=== PATIENT | female | born 1965 | race Caucasian/White ===

== ENCOUNTER → 2019-07-28 18:29 | Outpatient (CLI) | payer OTHER | END | disposition home or self-care (01) | LOC: D.MAMMO 07-12 15:30 | PROVIDERS: ATTEND Family Medicine | DX: Z12.31 Encounter for screening mammogram for malignant neoplasm of breast (principal) ==

== ENCOUNTER 2019-08-23 15:19 | Inpatient (IN) | payer OTHER ==
[~2019-08-23] VITALS: Ht 175.3 cm; Wt 74.8 kg
--- NOTE | 2019-08-23 02:00 | NUR ---
MEDICATED WITH MORPHINE ORDERED FOR C/O ABD PAIN. C/O AGAIN OF PELVIC PRESSURE LIKE HER BLADDER IS FULL. BLADDER SCAN PERFORMED AND NOTED 492 ML OF URINE NOTED. PT REQUESTING CATH. EXPLAINED THAT SANCHEZ WOULD PLACED AND KEPT IN UNTIL DC/D BY MD DUE TO RISK FOR INFECTION FROM CATHING. SHE VERBALIZED UNDERSTANDING. 16 FR SANCHEZ INSERTED PER STERILE TECHNIQUE WITH IMMEDIATE RETURN OF 500ML OF CLEAR YELLOW URINE. SECURED WITH STAT LOCK. PT STATES SHE FEELS RELIEF. CL IN REACH.
[2019-08-23] MEDS ORDERED: CYCLOBENZAPRINE5 MG PO (15:39)
[2019-08-23] MEDS ORDERED: PAXIL20 MG PO (15:41)
[2019-08-23 15:52] VITALS: BP 157/98; BMI 24.4
[2019-08-23 16:55] VITALS: BP 122/78
[2019-08-23 21:00] VITALS: BP 143/78
--- NOTE | 2019-08-23 21:35 | NUR ---
RECEIVED PT FROM PACU. ALERT AND ORIENTED. MOANING AND C/O PAIN. ABD INCISION X4 NOTED WITH STERI STRIPS. MARSHA DRAIN NOTED TO RT UPPER ABD WITH 30 ML OF BLOODY DRAINAGE EMPTIED. DRSG TO MARSHA IS SATURATED. RESP SHALLOW. O2 @ 2L/NC PLACED ON PT. HOB ELEVATED. INSTRUCTED OF NPO STATUS.
--- NOTE | 2019-08-23 22:00 | NUR ---
TRANSFERRED PT BACK TO HER ROOM. PT IS A&O MOANING IN PAIN. PAIN MED PROVIDED PER ORDERS. 22 GUAGE PIV INSERTED TO R.AC X2 STICKS. INITIATED PTS PROTONIX DRIP ORDERED. IV ANBX INFUSING VIA L.HAND. PASSED ON CARE TO NEW NURSE. STRICT NPO INITIATED. NO FURTHER NEEDS FROM ME.
--- NOTE | 2019-08-23 22:40 | NUR ---
PT RESTLESS AND C/O BLADDER PAIN AND FEELING LIKE SHE NEEDS TO VOID. ASSISTED WITH BEDPAN BUT COULDNT VOID. ASSISTED UP TO BSC WITH NO RESULTS. STATES SHE FEELS PRESSURE. BLADDER SCAN SHOWS 679 ML IN BLADDER. ATTEMPTED TO REACH DR MERINO WITH NO ANSWER. CALLED BANKING MANAGEMENT CONSULTING MANAGER FOR DR SOTO
--- NOTE | 2019-08-23 23:05 | NUR ---
NO CALL RETURNED FROM MD. I/O CATH PERFORMED AT THIS TIME WITH IMMEDIATE RETURN OF 1000 ML OF CLEAR YELLOW URINE. PT STATES SHE HAS A HX OF HER "BLADDER NOT WAKING UP AFER SURGERY". STATES SHE FEELS SO MUCH BETTER NOW. CLAIM CLERK RHETT HAWKINS.
[2019-08-24 00:30] VITALS: BP 139/75
[2019-08-24 04:30] VITALS: BP 136/85
[2019-08-24] MEDS ORDERED: PROZAC20 MG PO (05:38)
--- NOTE | 2019-08-24 07:44 | NUR ---
CALLED ME TO THE ROOM, THE MARSHA SITE WAS LEAKING. I CHANGED THE DRESSING AROUND THE SITE. SHE IS ALERT, TALKING. HAS A SANCHEZ FOR RETENTION. DENIES ANY PAIN AT THIS TIME.
[2019-08-24 08:00] VITALS: BP 130/96
--- NOTE | 2019-08-24 08:22 | NUR ---
NEW IV STARTED ON HER RIGHT ARM 22 G.
--- NOTE | 2019-08-24 09:03 | OP ---
PATIENT NAME: BRAYAN BURDEN MEDICAL RECORD: [id number] :65 LOCATION:D.MS [id number] ADMISSION DATE:08/23/19 SURGEON: ALDO SOTO MD DATE OF OPERATION: 08/23/2019 SURGEON: Aldo Soto MD PREOPERATIVE DIAGNOSES: Cholecystitis and pneumobilia. POSTOPERATIVE DIAGNOSES: 1. Cholecystoduodenal fistula. 2. Suppurative cholecystitis. PROCEDURE PERFORMED: 1. Laparoscopic cholecystectomy with intraoperative cholangiogram and immediate interpretation of fluoroscopy. 2. Laparoscopic resection of cholecystoduodenal fistula. 3. Laparoscopic primary closure of duodenum and Tho patch. ANESTHESIA: General. COMPLICATIONS: None. SPECIMENS: Gallbladder. Case was grossly contaminated. OPERATIVE COURSE: After consent was obtained, the patient was taken to the operating room and placed in the supine position on the operating table. Next, general anesthesia was given via endotracheal intubation after a timeout was performed to confirm the correct patient and procedure. At this time, Dr. Weber performed cystoscopy with left ureteral stent insertion. Please see his operative note for complete details when his portion of the procedure was complete, the abdomen was then prepped and draped in typical sterile fashion. Local anesthetic was injected just above the umbilicus. A stab incision was made with 11-blade scalpel. Using a 5-mm bladeless optical trocar, the abdomen was entered in direct laparoscopic vision. Adequate pneumoperitoneum was achieved. The abdominal cavity was inspected, no evidence of bowel injury, no evidence of bleeding. There were dense adhesions noted of the omentum and transverse colon to the gallbladder, which was not immediately identifiable. At this time, the patient was placed in steep reverse Trendelenburg position. All remaining trocars were placed, 11-mm trocar in the subxiphoid position. Two 5-mm trocars in the right lateral quadrant. Gentle dissection was performed using electrocautery and blunt dissection teasing the omentum and transverse colon away from the gallbladder. The gallbladder was then grasped and retracted cephalad. There was again immediately noticed dense fibrous adhesions of the gallbladder to the anterior surface of the duodenum with severe inflammation. Light gentle dissection was performed. At this time, once this was completed, with gentle dissection the duodenum was from the gallbladder. There was an obvious cholecystoduodenal fistula with a large ulcerated area of open duodenum on the anterior surface. There was an ulcerated area of open gallbladder noted on the gallbladder. Again, dissection continued, further mobilization was continued only to allow for further mobilization of the duodenum as to allow for identification of the cystic duct and the common bile duct dissection can meticulous dissection continued for approximately an hour OPERATIVE REPORT [id number] JENISEBRAYAN until the common bile duct and cystic duct were dissected and identified anatomically as well as further mobilization of the duodenum. At this time, a cholangiogram was performed. Prior to that, the gallbladder was dissected using a dome down technique using electrocautery. The cystic duct and cystic artery were identified. The triangle of safety was identified with the cystic duct lateral, cystic artery medial, liver in the posterior window. At this time, a cholangiogram was performed. A Bynum clamp was placed across the infundibulum, needle was inserted through the Bynum clamp and into the infundibulum. A cholangiogram was performed, which showed the common bile duct with antegrade and retrograde filling as well as filling of the duodenum. The 11-mm trocars were placed with a 12-mm trocar due to the inflammation and induration of the tissue. The infundibulum was stapled across using a CARRIE linear cutting stapler. The gallbladder was then removed and sent for permanent pathology. At this time, the edges of the duodenum were cleaned. The duodenum closed in a longitudinal direction to try to minimize stricturing. A 3-0 Vicryl suture was used from apex to apex to close the defect in a longitudinal fashion to reapproximate it. After this was done using 3-0 Vicryl suture laparoscopically, next the continuous running 3-0 Stratafix suture was then used to close the defect in its entirety. Thereafter, 3 interrupted 3-0 Vicryl sutures were used to imbricate the inner layer suture. Tisseel was applied to the duodenum, omentum was mobilized and applied on the anterior surface of the duodenum in a standard Tho patch formation. A MARSHA drain was then placed into the gallbladder fossa and brought out through the 11-mm trocar in the right lateral quadrant. At this time, the remaining portion abdomen was inspected. No evidence of bowel injury. No evidence of bleeding. The abdomen was copiously irrigated and suctioned. No evidence of bile injury, no evidence of bleeding. At this time, all remaining instruments removed. The abdomen was desufflated. Trocars removed. Skin was closed with 4-0 Monocryl, Mastisol and Steri-Strips. At any case, all needle and instrument counts were correct. No complications occurred. The patient was extubated and transferred to PACU in stable condition. TRANSINT:[id number] Voice Confirmation ID: [id number] DOCUMENT ID: [id number] ALDO SOTO MD at 0903 CC: [id number] DICTATION DATE: 08/23/192103 PROCUREMENT CONSULTANT: 08/24/19 0059 ADM IN [facility] [address] [place] [address]
[2019-08-24 09:28] LABS: BASOPHILS 0 % (0-2); EOSINOPHILS 0 % (0-7); HEMATOCRIT 35.1 % (36.0-48.0); HEMOGLOBIN 10.8 g/dL (12-16); IMMATURE GRANULOCYTES 0.1 % (0-5); MCH 27.4 pg (26.0-34.0); MCHC 30.8 g/dL (31.0-37.0); MCV 89.1 fL (80.0-100.0); MEAN PLATELET VOLUME 9.1 fL (7.4-10.4); MONOCYTES 4.3 % (2-11); NEUTROPHILS 90.6 % (40-80); PLATELET COUNT 299 10x3/uL (130-400); RBC 3.94 10x6/uL (4.00-5.40); RDW 15.9 % (11.5-14.5); WBC 10.8 10x3/uL (4.8-10.8)
[2019-08-24 09:32] LABS: ANION GAP 12.7 mmol/L (8-16); CALCIUM 8.7 mg/dL (8.5-10.1); CARBON DIOXIDE 25.4 mmol/L (21.0-32.0); CREATININE - SERUM 1.2 mg/dL (0.6-1.3); POTASSIUM - SERUM 4.1 mmol/L (3.5-5.1)
[2019-08-24 12:57] VITALS: BP 132/77
[2019-08-24 17:10] VITALS: BP 138/87
--- NOTE | 2019-08-24 18:12 | NUR ---
SHE SAT UP IN THE CHAIR FOR HOURS TODAY. SHE DOES NOT WANT TO WALK IN THE HALLWAY WITHOUT A MASK. NURSING TOLD HER WE CAN GET HER A MASK.
--- NOTE | 2019-08-24 19:12 | NUR ---
PATIENT RESTING IN BED AND DENIES NEEDS AT THIS TIME. BED IN LOWEST POSITION AND CALL LIGHT WITHIN REACH. ENCOURAGED THE PATIENT TO CALL IF SHE HAS NEEDS. WILL CONTINUE TO MONITOR.
[2019-08-24 20:00] VITALS: BP 155/80
--- NOTE | 2019-08-24 20:07 | NUR ---
PATIENT RESTING IN BED. ADMINISTERED MEDS PER ORDERS AND COMPLETED ASSESSMENT. PATIENT DENIES OTHER NEEDS AT THIS TIME.
--- NOTE | 2019-08-24 21:24 | MORECARE ---
CASE MANAGEMENT DISCHARGE SUMMARY PATIENT: BRAYAN BURDEN UNIT: [id number] ADM DATE: 08/24/19 AGE: 53 : 65 SEX: F ROOM/BED: D.2234 AUTHOR: NETTIE AVILA PHYSICIAN: REFERRING PHYSICIAN: ALDO SOTO MD DATE OF SERVICE: 08/24/19 Discharge Plan Patient Name: BRAYAN BURDEN [facility] [facility] 1965 Planned Disposition: Home Anticipated Discharge Date: Discharge Date: Expected LOS: Initial Reviewer: [email or web address] Initial Review Date: 08/23/2019 Generated: 08/24/19 10:23 pm DCPIA - Discharge Planning Initial Assessment Updated by [email or web address]: Charlotte Bustillos on 08/24/19 9:24 pm * Is the patient Alert and Oriented? Yes * How many steps to enter\exit or inside your home? * PCP SHANA * Pharmacy [facility] * Preadmission Environment Home with Family * ADLs Independent * Equipment None * List name and contact numbers for known caregivers / representatives who currently or will assist patient after discharge: KATE BURDEN - SPOUSE - [phone] * Verbal permission to speak to the caregivers and representatives has been obtained from the patient. Yes * Community resources currently utilized None * Additional services required to return to the preadmission environment? No * Can the patient safely return to the preadmission environment? Yes * Has this patient been hospitalized within the prior 30 days at any hospital? No Patient Name: BRAYAN BURDEN Page [id number] at 2124 All edits/amendments must be made on the electronic document DICTATION DATE: 08/24/192123 DIRECTOR OF CONSUMER MARKETING: JESSIE 08/24/192123 RPT#: [id number] MD DATE: STATUS: ADM IN [facility] [address] [place] [address] END OF REPORT
--- NOTE | 2019-08-24 21:31 | MORECARE ---
CASE MANAGEMENT DISCHARGE SUMMARY PATIENT: BRAYAN BURDEN UNIT: [id number] ADM DATE: 08/24/19 AGE: 53 : 65 SEX: F ROOM/BED: D.2234 AUTHOR: MARGARITA,DOC PHYSICIAN: REFERRING PHYSICIAN: ALDO SOTO MD DATE OF SERVICE: 08/24/19 Discharge Plan Patient Name: BRAYAN BURDEN Facility: [facility]:[place] : 1965 Planned Disposition: Home Anticipated Discharge Date: Discharge Date: Expected LOS: Initial Reviewer: [email or web address] Initial Review Date: 08/23/2019 Generated: 08/24/19 10:30 pm Comments DCP- Discharge Planning Updated by [email or web address]: Charlotte Bustillos on 08/24/19 8:[address] Patient Name: BRAYAN BURDEN Admission Status: Elective Accout number: [id number] Admission Date: 08-24-2019 : 1965 Admission Diagnosis: Attending: ALDO SOTO Current LOS: 1 Anticipated DC Date: Planned Disposition: Home Primary Insurance: AET[employer] PPO Discharge Planning Comments: CM met with patient to complete initial dc planning assessment. CM educated patient on the CM role and verbal consent given by patient to complete assessment. Patient lives at home with spouse. At discharge patient plans to return home and feels this is a safe discharge. CM discussed availability of home health, rehab services, and medical equipment. Patient denied known discharge needs at this time. CM will continue to follow and will assist as needed with dc plans/needs. Railroad Car Checker: Charlotte Bustillos DCPIA - Discharge Planning Initial Assessment Updated by [email or web address]: Charlotte Bustillos on 08/24/19 9:24 pm * Is the patient Alert and Oriented? Yes * How many steps to enter\exit or inside your home? * PCP SHANA * Pharmacy [facility] * Preadmission Environment Home with Family * ADLs Independent * Equipment None * List name and contact numbers for known caregivers / representatives who currently or will assist patient after discharge: KATE BURDEN - SPOUSE - [phone] * Verbal permission to speak to the caregivers and representatives has been obtained from the patient. Yes * Community resources currently utilized None * Additional services required to return to the preadmission environment? No * Can the patient safely return to the preadmission environment? Yes * Has this patient been hospitalized within the prior 30 days at any hospital? No Last DP export: 08/24/19 8:24 pm Patient Name: BRAYAN BURDEN Page [id number] at 2131 All edits/amendments must be made on the electronic document DICTATION DATE: 08/24/192129 SECURITY AND PRIVACY CONSULTANT: JESSIE 08/24/192129 RPT#: [id number] DC DATE: STATUS: ADM IN [facility] [address] [place] [address] END OF REPORT
[2019-08-25 05:36] LABS: BASOPHILS 0 % (0-2); EOSINOPHILS 0.1 % (0-7); HEMATOCRIT 32.8 % (36.0-48.0); HEMOGLOBIN 9.6 g/dL (12-16); IMMATURE GRANULOCYTES 0.3 % (0-5); LYMPHOCYTES 8.9 % (15-50); MCH 26.3 pg (26.0-34.0); MCHC 29.3 g/dL (31.0-37.0); MCV 89.9 fL (80.0-100.0); MEAN PLATELET VOLUME 9.4 fL (7.4-10.4); MONOCYTES 5.2 % (2-11); NEUTROPHILS 85.5 % (40-80); PLATELET COUNT 291 10x3/uL (130-400); RBC 3.65 10x6/uL (4.00-5.40); RDW 16.4 % (11.5-14.5); WBC 10.4 10x3/uL (4.8-10.8)
[2019-08-25 05:55] LABS: ALBUMIN 2.3 g/dL (3.4-5.0); ANION GAP 10.3 mmol/L (8-16); BILIRUBIN - TOTAL 0.28 mg/dL (0.2-1.3); CALCIUM 8.3 mg/dL (8.5-10.1); CARBON DIOXIDE 26.5 mmol/L (21.0-32.0); CREATININE - SERUM 1.2 mg/dL (0.6-1.3); POTASSIUM - SERUM 3.8 mmol/L (3.5-5.1); PROTEIN - SERUM 6.1 g/dL (6.4-8.2)
[2019-08-25 07:56] VITALS: BP 130/74
--- NOTE | 2019-08-25 08:00 | NUR ---
SHE IS AWAKE, BEEN WALKING IN THE ROOM. MARSHA TO THE RIGHT SIDE. LAURA. STATES THE TORADOL "IS WORKING GREAT".
--- NOTE | 2019-08-25 12:07 | OP ---
PATIENT NAME: BRAYAN BURDEN MEDICAL RECORD: [id number] :[birth year] LOCATION:D.MS [id number] ADMISSION DATE:08/24/19 SURGEON: WALT MERINO MD DATE OF OPERATION: 08/23/2019 SURGEON: Walt Merino MD ANESTHESIA: General anesthesia by Jose Morales CRNA. DIAGNOSIS: Proximal left ureteral stone, 8-mm. PROCEDURES: Cystoscopy, left retrograde pyelogram, left ureteral stent insertion 6-Emirati x 26 cm without string. FINDINGS: Radiodense left proximal ureteral stone with proximal hydronephrosis. BLOOD LOSS: None. CLINICAL HISTORY: This is a 53-year-old female with a previous history of kidney stones. Back in March when she was in [place], she had acute left flank pain with a fever. Afterwards, she thought she passed the stone. She comes now with acute abdominal pain. She has a CT scan, which shows acute cholecystitis. The CT scan also shows a left proximal ureteral 8-mm stone, which is causing hydronephrosis. Dr. Nam is bringing her to the operating room for an emergency laparoscopic cholecystectomy. At the same time, I can treat the stone with a ureteral stent insertion. As an outpatient, at a later date, we can perform lithotripsy on the stone to break it up. She has been ordered antibiotics by Dr. Nam and I did not order any further antibiotics. DESCRIPTION OF PROCEDURE: The patient was given induction of general anesthesia in supine position. She was then placed into lithotomy position and prepped and draped. Fluoroscopy was performed and a radiodensity could be seen which would correspond to the stone in the proximal ureter. A 21-Emirati cystoscope with 30-degree lens was used for visualization. Single ureteral orifices were seen on each side. No bladder tumors were seen. The left ureteral orifice was intubated using a 5-Emirati open-ended ureteral catheter. A retrograde pyelogram was performed by injecting diluted contrast. This did confirm the radiodensity as being the stone. There was also hydronephrosis proximal to it. A Sensor wire was placed into the renal pelvis through the lumen of the ureteral catheter. Once the wire was in correct position, the ureteral catheter was removed entirely. Over the wire, we inserted the stent. Once the stent was in correct position, the wire was withdrawn entirely. The distal end of stent was pushed into the bladder using a pusher. The string on the distal end of the stent is removed. The reason for removing the string is that she will have to have the stent in for at least a month while the restriction on elective surgery due to the coronavirus is in place. TRANSINT:[id number] Voice Confirmation ID: [id number] DOCUMENT ID: [id number] OPERATIVE REPORT [id number] BRAYAN BURDEN ROBERT S MD at 1207 CC: [id number] DICTATION DATE: 08/23/19 1825 LITERACY SPECIALIST: 08/24/19 0030 ADM IN [facility] [address] [place] [id number]
--- NOTE | 2019-08-25 14:20 | NUR ---
WALKED IN THE HALLWAY 4 TIMES TODAY WITH A MASK ON.
--- NOTE | 2019-08-25 17:28 | NUR ---
I have reviewed this patient and I concur with the Shift Assessment completed by the Licensed Practical Nurse today this shift.
[2019-08-25 20:00] VITALS: BP 136/72
--- NOTE | 2019-08-25 20:00 | NUR ---
ALERT RESTING IN BED DENIES PAIN OR NEEDS AT THIS TIME, SEE SHIFT ASSESSMENT, CALL LIGHT IN REACH, MARSHA DRAIN TO RIGHT SIDE WITH SEROUS FLUID NOTED DRESSING INTACT
[2019-08-26] VITALS: BP 123/78
[2019-08-26 04:00] VITALS: BP 115/72
[2019-08-26 05:31] LABS: BASOPHILS 0.3 % (0-2); EOSINOPHILS 3.3 % (0-7); HEMATOCRIT 33.8 % (36.0-48.0); HEMOGLOBIN 9.8 g/dL (12-16); IMMATURE GRANULOCYTES 0.1 % (0-5); LYMPHOCYTES 19.7 % (15-50); MCH 26.2 pg (26.0-34.0); MCV 90.4 fL (80.0-100.0); MEAN PLATELET VOLUME 9.2 fL (7.4-10.4); MONOCYTES 7.7 % (2-11); NEUTROPHILS 68.9 % (40-80); PLATELET COUNT 307 10x3/uL (130-400); RBC 3.74 10x6/uL (4.00-5.40); RDW 16.3 % (11.5-14.5); WBC 7.8 10x3/uL (4.8-10.8)
[2019-08-26 05:45] LABS: ALBUMIN 2.2 g/dL (3.4-5.0); ANION GAP 7.9 mmol/L (8-16); BILIRUBIN - TOTAL 0.22 mg/dL (0.2-1.3); CALCIUM 8.1 mg/dL (8.5-10.1); CARBON DIOXIDE 27.9 mmol/L (21.0-32.0); POTASSIUM - SERUM 3.8 mmol/L (3.5-5.1); PROTEIN - SERUM 6.1 g/dL (6.4-8.2)
[2019-08-26 08:00] VITALS: BP 122/74
--- NOTE | 2019-08-26 08:00 | NUR ---
ALERT AND ORIENTED X4. ABDOMINAL LAP SITES INTACT TO ABDOMEN WIH NO S/S OF INFECTION. MARSHA DRAIN INTACT WITH SEROUSSANGUNOUS DRAINAGE. IV INFILTRATED TO RT FOREARM AND DISCONTINUED WELL RESITED. UP ADLIB WITH STEADY GAIT. HRRR AND ABDOMEN SOFT WITH BOWEL SOUNDS HYPOACTIVE. STATES SHE HAD HAD LOOSE BM WITH FLATULANCE. IVF INFUSING TO RT FOREARM WELL AT PREXSCRIBED RATE. ENCOURAGED TO USE CALL LIGHT FOR ASSSIT
[2019-08-26 13:28] VITALS: Ht 175.3 cm; Wt 74.8 kg
[2019-08-26 16:31] VITALS: BP 133/81
[2019-08-26 23:33] VITALS: BP 140/78
[2019-08-27 00:06] VITALS: BP 136/84
[2019-08-27 06:04] LABS: BASOPHILS 0.3 % (0-2); EOSINOPHILS 5.9 % (0-7); HEMATOCRIT 34.6 % (36.0-48.0); HEMOGLOBIN 10.4 g/dL (12-16); IMMATURE GRANULOCYTES 0.4 % (0-5); LYMPHOCYTES 20.9 % (15-50); MCH 27.1 pg (26.0-34.0); MCHC 30.1 g/dL (31.0-37.0); MCV 90.1 fL (80.0-100.0); MONOCYTES 8.9 % (2-11); NEUTROPHILS 63.6 % (40-80); PLATELET COUNT 322 10x3/uL (130-400); RBC 3.84 10x6/uL (4.00-5.40); RDW 16.1 % (11.5-14.5); WBC 6.9 10x3/uL (4.8-10.8)
[2019-08-27 06:41] LABS: ALBUMIN 2.3 g/dL (3.4-5.0); ANION GAP 10.7 mmol/L (8-16); BILIRUBIN - TOTAL 0.35 mg/dL (0.2-1.3); CALCIUM 8.5 mg/dL (8.5-10.1); CARBON DIOXIDE 26.3 mmol/L (21.0-32.0); PROTEIN - SERUM 6.5 g/dL (6.4-8.2)
--- NOTE | 2019-08-27 07:38 | NUR ---
ALERT AND ORENTED ABLE TO VOICE NEEDS AND WANTS TO STAFF. IV TO RIGHT AC CAME OUT CANULA INTACT, RESITED TO RIGHT HAND WITH 22 MARIELLA. 4 LAP SITES TO ABDAMON WITH NO S/S OF INFECTION NOTED AT THIS TIME. MARSHA DRAIN IN PLACE AND DRAING WITH BLOOD TINGED FLUIDS. NO S/S OF DISTRESS
[2019-08-27 09:04] VITALS: BP 107/73
--- NOTE | 2019-08-27 11:00 | NUR ---
MARSHA SUTURE REMOVED WITH BULB DEFLATD WITH DRAIN REMOVED WITH COMPRESSION DRESSING APPLIED. TOLERATED WELL. ABDOMINAL STERISTRIPS INTACT WITH BOWEL SOUNDS NOTED. LUNGS CTA AND HRRR. STATES HAD LOOSE BM LAST NIGHT WITH FLATULANCE. DENIES ANY N/V
[2019-08-27] MEDS ORDERED: HYDROCODON-ACE1 EAC7 PO (11:18)
[2019-08-27] MEDS ORDERED: LEVOFLOXACIN500 MG PO (11:18)
--- NOTE | 2019-08-27 12:45 | NUR ---
IV IDSCONTINUED AND VERBALIZIZED UNDERSTANDING OF DISCHARGE INSTRUCTIONS. STABLE AT TIME OF DISCHARGE.
--- NOTE | 2019-08-28 09:45 | MORECARE ---
CASE MANAGEMENT DISCHARGE SUMMARY PATIENT: BRAYAN BURDEN UNIT: [id number] ADM DATE: 08/24/19 AGE: 53 : 65 SEX: F ROOM/BED: D.2234 AUTHOR: MARGARITA,DOC PHYSICIAN: REFERRING PHYSICIAN: ALDO SOTO MD DATE OF SERVICE: 08/28/19 Discharge Plan Patient Name: BRAYAN BURDEN Facility: [facility]:[place] : 1965 Planned Disposition: Home Anticipated Discharge Date: Discharge Date: 08/27/2019 Expected LOS: Initial Reviewer: [email or web address] Initial Review Date: 08/23/2019 Generated: 08/28/19 10:44 am Comments DCP- Discharge Planning Updated by [email or web address]: Charlotte Bustillos on 08/24/19 8:[address] Patient Name: BRAYAN BURDEN Admission Status: Elective Accout number: [id number] Admission Date: 08-24-2019 : 1965 Admission Diagnosis: Attending: ALDO SOTO Current LOS: 1 Anticipated DC Date: Planned Disposition: Home Primary Insurance: AETNA PPO Discharge Planning Comments: CM met with patient to complete initial dc planning assessment. CM educated patient on the CM role and verbal consent given by patient to complete assessment. Patient lives at home with spouse. At discharge patient plans to return home and feels this is a safe discharge. CM discussed availability of home health, rehab services, and medical equipment. Patient denied known discharge needs at this time. CM will continue to follow and will assist as needed with dc plans/needs. C Winforms Developer: Charlotte Bustillos DCPIA - Discharge Planning Initial Assessment Updated by [email or web address]: Charlotte Bustillos on 08/24/19 9:24 pm * Is the patient Alert and Oriented? Yes * How many steps to enter\exit or inside your home? * PCP SHANA * Pharmacy [facility] * Preadmission Environment Home with Family * ADLs Independent * Equipment None * List name and contact numbers for known caregivers / representatives who currently or will assist patient after discharge: KATE BURDEN - SPOUSE - [phone] * Verbal permission to speak to the caregivers and representatives has been obtained from the patient. Yes * Community resources currently utilized None * Additional services required to return to the preadmission environment? No * Can the patient safely return to the preadmission environment? Yes * Has this patient been hospitalized within the prior 30 days at any hospital? No Last DP export: 08/24/19 8:30 pm Patient Name: BRAYAN BURDEN Page 52676 at 0945 All edits/amendments must be made on the electronic document DICTATION DATE: 08/28/19943 MINING DETAIL DRAFTSPERSON: JESSIE 08/28/19943 RPT#: [id number] DC DATE:08/27/19 STATUS: DIS IN [facility] [address] [place] [address] END OF REPORT
== END 2019-08-27 12:45 | disposition home or self-care (01) | DRG 330 ==
LOC: D.OPS 15:19 → D.MS 15:20 → OBSVTIME 15:20 → D.MS 15:20 → D.SDCHOLD 08-24 14:42 → D.MS 08-24 16:29
PROVIDERS: Urology; ADMIT Surgery; ATTEND Surgery
PROC: BF121ZZ Fluoroscopy of Gallbladder using Low Osmolar Contrast (ICD-10-PCS; 2019-08-23)
PROC: 0DB94ZZ Excision of Duodenum, Percutaneous Endoscopic Approach (ICD-10-PCS; 2019-08-23)
PROC: 0DU947Z Supplement Duodenum with Autologous Tissue Substitute, Percutaneous Endoscopic Approach (ICD-10-PCS; principal; 2019-08-23 15:30)
PROC: 0FT44ZZ Resection of Gallbladder, Percutaneous Endoscopic Approach (ICD-10-PCS; 2019-08-23 15:30)
PROC: 0T778DZ Dilation of Left Ureter with Intraluminal Device, Via Natural or Artificial Opening Endoscopic (ICD-10-PCS; 2019-08-23 15:30)
DX: K65.9 Peritonitis, unspecified (principal); K82.A2 Perforation of gallbladder in cholecystitis; N13.2 Hydronephrosis with renal and ureteral calculous obstruction; K82.3 Fistula of gallbladder; K81.0 Acute cholecystitis; M19.90 Unspecified osteoarthritis, unspecified site

== ENCOUNTER 2019-09-01 06:37 | Day surgery (SDC) | payer OTHER ==
[~2019-09-01] VITALS: Ht 175.3 cm; Wt 74.4 kg
[~2019-09-01 06:37] MED LIST: CYCLOBENZAPRINE5 MG PO; HYDROCODON-ACE1 EAC7 PO; LEVOFLOXACIN500 MG PO; PAXIL20 MG PO; PROZAC20 MG PO
[2019-09-01 07:12] LABS: HEMATOCRIT 37.5 % (36.0-48.0); HEMOGLOBIN 11.3 g/dL (12-16); MCH 26.7 pg (26.0-34.0); MCHC 30.1 g/dL (31.0-37.0); MCV 88.7 fL (80.0-100.0); MEAN PLATELET VOLUME 8.6 fL (7.4-10.4); RBC 4.23 10x6/uL (4.00-5.40); RDW 16.2 % (11.5-14.5)
[2019-09-01] MEDS ORDERED: HYDROCODON-ACE1 EAC7 PO (07:30)
[2019-09-01 07:36] VITALS: BP 102/79; Ht 175.3 cm; Wt 74.4 kg
--- NOTE | 2019-09-01 10:33 | NUR ---
1030-REC'D FROM RR. AWAKE AND ALERT. DENIES PAIN.VSS. REVIEWED DISCHARGE CRITERIA.VERBALIZED UNDERSTANDING. CL IN EASY REACH
--- NOTE | 2019-09-01 11:06 | NUR ---
1100-FULL LIQUID TRAY TO ROOM
--- NOTE | 2019-09-01 12:49 | OP ---
PATIENT NAME: BRAYAN BURDEN MEDICAL RECORD: [id number] :65 LOCATION:[facility] ADMISSION DATE: SURGEON: HODA MERINO MD DATE OF OPERATION: 09/01/2019 SURGEON: Hoda Merino MD ANESTHESIA: General anesthesia by Janeth Hewitt CRNA DIAGNOSIS: Left renal 8-mm stone. PROCEDURE: Left ESWL times 3000 shocks. FINDINGS: Radiodense left renal stone. BLOOD LOSS: None. CLINICAL HISTORY: This is a 53-year-old female, who initially presented to the hospital with acute cholecystitis. On CT scan of the abdomen and pelvis, the cholecystitis was visible. There was also a left proximal ureteral 8-mm stone, which was causing hydronephrosis. When she went to the operating room to have a laparoscopic cholecystectomy done, I inserted the left ureteral stent at that time. Now, she comes to have a left kidney stone treated with lithotripsy. She was given ampicillin and sulbactam 3 grams IV pump installation and servicer to the OR. DESCRIPTION OF PROCEDURE: The patient was placed on the lithotripsy treatment table. Fluoroscopy was performed and we identified the stone in the kidney. The ureter was examined by following the stent all the way down to the bladder. There are phleboliths in the pelvis, but no ureteral stone was seen. We then targeted the stone in the kidney in 2 planes. A 3000 shocks were given to the stone to completely break it up. I will see her back in followup at the [facility] office. This will be in 2 weeks with a KUB. TRANSINT:[id number] Voice Confirmation ID: [id number] DOCUMENT ID: [id number] HODA MERINO MD at 1249 CC: [id number] DICTATION DATE: 09/01/19 1002 BIAS BINDING CUTTER: 09/01/19 1111 REG [facility] [address] [place] [address]
--- NOTE | 2019-09-01 15:36 | NUR ---
1115-AMBULATED TO RESTROOM AND URINATED WITHOUT COMPLICATIONS. REMOVED IN WITH CATH INTACT,DISPOSED INTO SHARPS,COVERED SITE WITH GUAZE,SECURED WITH MEDIPORE TAPE.
--- NOTE | 2019-09-01 15:38 | NUR ---
1130-REVIEWED POST OPERATIVE INSTRUCTIONS AND FOLLOW UP APPOINTMENT.
--- NOTE | 2019-09-01 15:41 | NUR ---
1135-ECORTED OUT VIA W/C WITH SPOUSE AWAITING TO DRIVE HOME
== END 2019-09-01 11:35 | disposition home or self-care (01) ==
LOC: D.OPS 06:37 → D.PAN 09:00 → D.OPS 11:35
PROVIDERS: Anesthesiology; ATTEND Urology
DX: N20.0 Calculus of kidney (principal); K81.0 Acute cholecystitis